=== PATIENT | male | born 1955 | race Hispanic/Latino ===

== ENCOUNTER 2018-12-30 12:33 | Inpatient (IN) | payer MEDICARE ==
[2018-12-30] MEDS ORDERED: VERSED ONE (18:44)
[2018-12-30] MEDS ORDERED: SUBLIMAZE ONE (18:44)
[2018-12-30] MEDS ORDERED: HEPARIN/NS 5000 UNIT/500ML(CATH LAB) 1,000 ML IR ONE (18:45)
[2018-12-30] MEDS ORDERED: ANCEF/STERILE WATER 2 GM/20 ML 2 GM/20 ML SYRINGE IV ONE (18:45)
[2018-12-30] MEDS ORDERED: NACL 0.9% 500 ML 500 ML ONE (18:46)
[2018-12-30] MEDS: XYLOCAINE 1%/ EPI 1:100,000 INFILTRATI ONE ×2 (19:11→19:26)
[2018-12-30] MEDS: HEPARIN 10,000 UNITS/10 ML ONE ×2 (19:22→19:31)
[2018-12-30] MEDS ORDERED: PROVENTIL IH PRN (19:42)
[2018-12-30] MEDS ORDERED: ZOFRAN IV PRN (19:42)
[2018-12-30] MEDS ORDERED: TYLENOL PO PRN (19:42)
[2018-12-30] MEDS ORDERED: SODIUM CHLORIDE FLUSH SYRINGE 10 ML IV PRN (19:42)
[2018-12-30] MEDS ORDERED: PERCOCET 5/325 PO PRN (19:42)
--- NOTE | 2018-12-30 19:45 | History and Physical Report ---
History of Present Illness Chief complaint: I need dialysis History of present illness: 63 YO Male with HTN, HLD, ESRD on HD admitted for Clotted AVF. Pt underwent permacath placement as per vascular surgery. Pt found to have ESRD in need of dialysis. Pt seen and evaluated in agriculture laboratory technician. Pt denies fever, chills, CP, Pal pitations, NVD, Trauma, BRBPR, productive cough, or recent ill contacts. Nephrology consulted in carpenter labor supervisor. Vascular surgery consulted. Pt denies fever, chills, CP, Palpitations, NVD, Syncope, Trauma, BRBPR. Pt admitted to [facility]. No reported nursing events. Pt has no prior [facility] admission. Past History Past Medical History: ESRD, hypertension, hyperlipidemia Past Surgical History: cholecystectomy, hernia repair (Right Nephrectomy), Other (AV fistula repair) Social history: , lives with family. denies: smoking, alcohol abuse, prescription drug abuse Family history: hypertension Medications and Allergies Allergies Allergy/AdvReac Type Severity Reaction Status Date / Time No Known Allergies Allergy Verified 12/30/18 12:58 Home Medications Medication Instructions Recorded Confirmed Last Taken Type Adult Low Dose Aspirin EC 81 mg PO DAILY 12/30/18 12/30/18 12/29/18 History 1 tab Cinacalcet HCl [Sensipar] 60 mg PO DAILY 12/30/18 12/30/18 12/29/18 History 1 tab Furosemide 80 mg PO DAILY 12/30/18 12/30/18 12/29/18 History 1 tab Glucosamine Sulfate 1,500 mg PO DAILY 12/30/18 12/30/18 12/29/18 History 1 tab Lisinopril [Zestril TAB] 40 mg PO DAILY 12/30/18 12/30/18 12/29/18 History 1 tab Nifedipine 60 mg PO DAILY 12/30/18 12/30/18 12/29/18 History 1 tab Sevelamer Carbonate 800 mg PO TID 12/30/18 12/30/18 12/29/18 History 1 tab Review of Systems Constitutional: no weight loss, no weight gain, no fever, no chills Ears, nose, mouth and throat: no ear pain, no ear discharge, no tinnitis, no decreased hearing, no nose pain Cardiovascular: no chest pain, no orthopnea, no palpitations, no rapid/irregular heart beat, no edema, no syncope Respiratory: no cough, no cough with sputum, no excessive sputum, no hemoptysis, no shortness of breath Gastrointestinal: no nausea, no vomiting, no diarrhea, no constipation, no change in bowel habits Genitourinary Male: no hematuria, no flank pain, no discharge, no urinary hesitancy, no nocturia Rectal: no pain, no incontinence, no bleeding Musculoskeletal: no neck stiffness, no neck pain, no shooting arm pain, no arm numbness/tingling, no low back pain, no shooting leg pain Integumentary: no rash, no pruritis, no redness, no sores, no wounds Neurological: no head injury, no transient paralysis, no paralysis, no weakness, no parathesias, no numbness, no tingling Psychiatric: no anxiety, no memory loss, no change in sleep habits, no insomnia, no hypersomnia, no change in appetite, no change in libido Endocrine: no cold intolerance, no heat intolerance, no polyphagia, no excessive thirst, no polydipsia, no polyuria, no nocturia Hematologic/Lymphatic: no easy bruising, no easy bleeding, no lymphadenopathy, no lymphedema Allergic/Immunologic: no urticaria, no allergic rhinitis, no persistent infections Exam - Constitutional Vitals: Temp Pulse Resp BP Pulse Ox 97.9 F 57 L 18 135/60 95 12/30/18 14:00 12/30/18 14:00 12/30/18 14:00 12/30/18 14:00 12/30/18 14:00 General appearance: Present: no acute distress, well-nourished - EENT Eyes: Present: PERRL ENT: hearing intact, clear oral mucosa - Neck Neck: Present: supple, normal ROM - Respiratory Respiratory effort: normal Respiratory: bilateral: CTA - Cardiovascular Heart Sounds: Present: S1 & S2. Absent: rub, click - Extremities Extremities: pulses symmetrical, No edema Peripheral Pulses: within normal limits - Abdominal General gastrointestinal: Present: soft, non-tender, non-distended, normal bowel sounds Male genitourinary: Present: normal - Integumentary Integumentary: Present: clear, warm, dry - Musculoskeletal Musculoskeletal: gait normal, strength equal bilaterally - Psychiatric Psychiatric: appropriate mood/affect, intact judgment & insight - Neurologic Neurologic: CNII-XII intact, moves all extremities Results - Labs CBC & Chem 7: 03/21/19 13:18 Labs: Abnormal lab results 12/30/18 Range/Units 13:18 Potassium 6.4 H* (3.6-5.0) mmol/L Assessment and Plan - Patient Problems (1) ESRD (end stage renal disease) on dialysis Current Visit: Yes Status: Acute Plan to address problem: Nephrology consulted for urgent dialysis, strict I/O, daily weight, monitor uop q shift, avoid nephrotoxic agents (2) Hyperkalemia Current Visit: Yes Status: Acute Plan to address problem: Urgent dialysis as per renal team, supportive care. (3) Clotted renal dialysis AV graft Current Visit: Yes Status: Acute Qualifiers: Encounter type: initial encounter Qualified Code(s): T82.868A - Thrombosis due to vascular prosthetic devices, implants and grafts, initial encounter Plan to address problem: Vascular surgery consulted, Pending surgical intervention, (4) DVT prophylaxis Current Visit: Yes Status: Acute Plan to address problem: SCD to BLE while in bed
[2018-12-30] MEDS ORDERED: NACL 0.9% 100 ML IV PRN (20:14)
--- NOTE | 2018-12-30 20:16 | Operative Report ---
Operative Report Operative Report: Date of procedure: 12/30/2018 Pre-operative diagnosis: Thrombosed AV fistula, end-stage renal disease, hyperkalemia Post-operative diagnosis: Same Procedure name(s): Session of permacath right internal jugular vein, duplex carotid cannulation right internal jugular vein, fluoroscopic supervision interpretation Surgeon: Adithya Padilla MD Multisensor Intelligence Officer: None Anesthesia: Moderate sedation EBL: None Specimen(s): None Complications: None Procedure:Patient in the supine position with the head rotated to the left the right anterior neck and chest were prepped and draped using standard sterile technique. Sterile duplex guidance was used to identify the patent internal jugular vein skin overlying that vessel was anesthetized. A small transverse incision was made through the anesthetized area and a cannulation needle was inserted directly into the internal jugular vein using duplex guidance to identify anterior wall penetration by the needle. The guidewire was advanced fluoroscopically through the right atrium into the inferior vena cava. Cannulation needle was exchanged for dilators and sequentially 12,14 and then 16 Anguillan dilators were advanced into the right atrium using Seldinger technique. A 16 [place]guillan safe sheath introducer was advanced and the right atrium and the guidewire and obturator were removed. A 23 cm permacath was then tunneled from the preselected a necessary as insertion site on the chest retrograde to the cervical incision. Catheter was then advanced through the introducer into the right atrium. The peel-away introducer was removed. Catheter tip was adjusted into the mid right atrium. Length and configuration was adjusted fluoroscopically. Both limbs of the catheter was aspirated flushed and primed using 5000 units of heparin per limb. Sterile caps were applied. The cervical incision was then closed using 3-0 Vicryl subcutaneous 4-0 Monocryl subcuticular. Skin was sealed with Dermabond. Catheter was anchored using a Tegaderm dressing with Biopatch. Fluoroscopy confirmed excellent catheter position and configuration. Patient was then returned to supine position and thus to the floor in stable condition rate for hemodialysis.
--- NOTE | 2018-12-30 21:11 | Consultation ---
History of Present Illness - Reason for Consult end stage renal disease - History of Present Illness CC : ESRD management and hyperkalemia 63 year old gentleman with medical history signficant for HTN , DM type II , ESRD previously on peritoneal dialysis now on hemodialysis on Thursday at the [facility] via a left arm AV fistula. He was sent from the dialysis unit due to inability to cannulate his fistula only one needle was able to successfully access blood flow. He was sent to the vascular surgery team. He was seen by Dr. Randy SolorzanoCath was placed. He will require likely fistulogram thrombectomy and possible fistula revision. Last dialysis was Thursday. Labs obtained today showed hyperkalemia with a potassium of 6.4 he makes some minimal urine. He reports he had a kidney biopsy and a rare disease was found and he does not remember the name of the disease ! He does report some exertional dyspnea he denies any nausea vomiting diarrhea denies any bleeding from any orifice he denies any headaches he denies any orthopnea PND.He reports dry weight is 92kg he was previously on peritoneal dialysis was several years before starting hemodialysis. Medications and Allergies Allergies Allergy/AdvReac Type Severity Reaction Status Date / Time No Known Allergies Allergy Verified 12/30/18 12:58 Home Medications Medication Instructions Recorded Confirmed Last Taken Type Adult Low Dose Aspirin EC 81 mg PO DAILY 12/30/18 12/30/18 12/29/18 History 1 tab Cinacalcet HCl [Sensipar] 60 mg PO DAILY 12/30/18 12/30/18 12/29/18 History 1 tab Furosemide 80 mg PO DAILY 12/30/18 12/30/18 12/29/18 History 1 tab Glucosamine Sulfate 1,500 mg PO DAILY 12/30/18 12/30/18 12/29/18 History 1 tab Lisinopril [Zestril TAB] 40 mg PO DAILY 12/30/18 12/30/18 12/29/18 History 1 tab Nifedipine 60 mg PO DAILY 12/30/18 12/30/18 12/29/18 History 1 tab Sevelamer Carbonate 800 mg PO TID 12/30/18 12/30/18 12/29/18 History 1 tab Active Meds: Active Medications Acetaminophen (Tylenol) 650 mg PO Q4H PRN PRN Reason: Pain MILD(1-3)/Fever >100.5/GREGG Albuterol (Proventil) 2.5 mg IH Q4HRT PRN PRN Reason: Shortness Of Breath Sodium Chloride (Nacl 0.9%) 100 mls @ 999 mls/hr IV JULI PRN PRN Reason: Hypotension Ondansetron HCl (Zofran) 4 mg IV Q8H PRN PRN Reason: Nausea And Vomiting Oxycodone/Acetaminophen (Percocet 5/325) 1 tab PO Q6H PRN PRN Reason: Pain, Moderate (4-6) Sodium Chloride (Sodium Chloride Flush Syringe 10 Ml) 10 ml IV BID JASPER Sodium Chloride (Sodium Chloride Flush Syringe 10 Ml) 10 ml IV PRN PRN PRN Reason: LINE FLUSH Review of Systems Constitutional: no weight loss, no weight gain, no fever, no chills Ears, nose, mouth and throat: no deferred, no ear pain, no ear discharge Cardiovascular: no chest pain, no orthopnea Respiratory: no cough, no cough with sputum Gastrointestinal: no abdominal pain, no nausea, no vomiting Genitourinary Male: no dysuria, no hematuria Musculoskeletal: no neck stiffness, no neck pain Integumentary: no deferred Neurological: no head injury, no transient paralysis Psychiatric: no anxiety, no memory loss Endocrine: no cold intolerance, no heat intolerance Hematologic/Lymphatic: no easy bruising, no easy bleeding Exam - Vital Signs Vital signs: Vital Signs Temp Pulse Resp BP Pulse Ox 97.9 F 57 L 18 135/60 95 12/30/18 14:00 12/30/18 14:00 12/30/18 14:00 12/30/18 14:00 12/30/18 14:00 - General Appearance General appearance: well-developed, well-nourished EENT: ATNC, PERRL, hearing diminished Neck: Present: neck supple, trachea midline Respiratory: Decreased Breath Sounds Heart: regular, S1S2 Gastrointestinal: Present: normal, normoactive bowel sounds Integumentary: no rash Neurologic: alert and oriented x3, gait normal, strength 5/5 Musculoskeletal: Present: other (left arm AV fistula left arm AV fistula) Psychiatric: mood/affect appropriate, cooperative Results - Lab Results 12/30/18 13:18 Assessment and Plan - Patient Problems (1) ESRD (end stage renal disease) on dialysis Current Visit: Yes Status: Acute Plan to address problem: End-stage renal disease Dialysis access is right IJ [place] Also has a left arm AV fistula with high-pitched bruit concerning for stenosis/obstruction Will initiate dialysis 2k/2.5ca/35hco3 bath (2) Dialysis AV fistula malfunction Current Visit: Yes Status: Acute Qualifiers: Encounter type: initial encounter Qualified Code(s): T82.590A - Other mechanical complication of surgically created arteriovenous fistula, initial encounter Plan to address problem: Dialysis fistula malfunction AV fistula with high-pitched bruit concern for thrombosis/stenosis Appreciate vascular surgery evaluation and management tunneled dialysis catheter has been placed plan for fistulogram and thrombectomy and possible fistula revision Will need follow up appointment with vascular surgery for fistulogram (3) Hyperkalemia Current Visit: Yes Status: Acute Plan to address problem: Acute hyperkalemia secondary to renal failure We'll initiate dialysis 2k/2.5ca/35hco3 bath. (4) HTN (hypertension) Current Visit: Yes Status: Acute Qualifiers: Hypertension type: essential hypertension Qualified Code(s): I10 - Essential (primary) hypertension Plan to address problem: Hypertension controlled continue lisinopril and nifedipine (5) Metabolic bone disease Current Visit: Yes Status: Acute Plan to address problem: History of secondary Hyperparathyroidism currently on sensipar continue Renvela 1 tab TID Repeat labs in am . We will follow with you Thank you for this consult.
[2018-12-31 04:42] LABS: Basophils % (Auto) 0.4 % (0.0-1.8); Eosinophils # (Auto) 0.1 K/mm3 (0.0-0.4); Eosinophils % (Auto) 1.9 % (0.0-4.3); Hematocrit 33.5 % (35.5-45.6); Lymphocytes # (Auto) 0.8 K/mm3 (1.2-5.4); Lymphocytes % (Auto) 12.1 % (13.4-35.0); Mean Corpuscular HGB Conc 33 % (32-34); Mean Corpuscular Volume 77 fl (84-94); Monocytes # (Auto) 0.6 K/mm3 (0.0-0.8); Monocytes % (Auto) 9.5 % (0.0-7.3); Platelet Count 327 K/mm3 (140-440); Red Blood Count 4.36 M/mm3 (3.65-5.03)
[2018-12-31 04:55] LABS: Calcium 9.3 mg/dL (8.4-10.2)
[2018-12-31 04:57] LABS: Red Cell Distribution Width 21.8 % (13.2-15.2)
[2018-12-31 07:23] LABS: Hepatitis B Surface Antigen Non-Reactive (Negative); Hepatitis C Virus Antibody Non-Reactive (NonReactive)
[2018-12-31] MEDS: SODIUM CHLORIDE FLUSH SYRINGE 10 ML IV SCH ×2 (07:35→09:30)
[2018-12-31] MEDS: RENVELA PO SCH ×2 (07:35→11:51)
[2018-12-31] MEDS: SENSIPAR PO SCH ×2 (09:28→09:34)
[2018-12-31 09:30] VITALS: BP 180/81
[2018-12-31] MEDS ORDERED: PROCARDIA XL PO SCH ×2 (10:00→22:00)
[2018-12-31] MEDS ORDERED: HALFPRIN EC PO SCH (10:00)
[2018-12-31] MEDS ORDERED: LASIX PO SCH (10:00)
[2018-12-31] MEDS ORDERED: ZESTRIL PO SCH (10:00)
[2018-12-31] MEDS ORDERED: GLUCOSAMINE SULFATE 1500 MG PO SCH (10:00)
[2018-12-31] MEDS ORDERED: APRESOLINE IV PRN (10:29)
--- NOTE | 2018-12-31 10:29 | Progress Note ---
Assessment and Plan Assessment and plan: 63-year-old man with history of hypertension and hyperlipidemia and end-stage renal disease who presents with clotted AV graft. Diagnoses AV graft malfunction Hypertensive urgency Hyperkalemia End-stage renal disease Hyperlipidemia Procedures; 12/30/18, placement of permacath Hospital course Patient received permacath in the right IJ, he then went on to have hemodialysis, hyperkalemia corrected after dialysis. Optimize blood pressure medications He is planned for fistulogram today DVT prophylaxis with heparin subcutaneous History Interval history: Review of systems Constitutional: No fevers, no malaise, no joint pains CVS: No chest pain, no orthopnea, no dyspnea on exertion, no pedal edema GI: No abdominal pain, no diarrhea, no vomiting, no constipation Respiratory: No shortness of breath, no wheezing, no coughing Hospitalist Physical - Physical exam Narrative exam: General.: Appears well, no distress, nontoxic HEENT: Moist mucous membranes, extraocular muscles intact, no lymphadenopathy Neck: supple Cardiac: S1-S2 heard Lungs: clear to auscultation bilaterally Abdomen: soft , nontender, nondistended, bowel sounds positive Extremities: no edema clubbing or cyanosis Skin: no rash or lesions Neurologic: no gross focal deficits Psych: calm, and cooperative - Constitutional Vitals: Temp Pulse Resp BP Pulse Ox 99.0 F 70 20 180/81 96 12/31/18 07:03 12/31/18 09:29 12/31/18 07:03 12/31/18 09:29 12/31/18 08:51 General appearance: Present: no acute distress, well-nourished Results - Labs CBC & Chem 7: 12/31/18 04:19 12/31/18 04:19 Labs: Laboratory Last Values WBC 6.2 K/mm3 (4.5-11.0) 12/31/18 04:19 RBC 4.36 M/mm3 (3.65-5.03) 12/31/18 04:19 Hgb 11.0 gm/dl (11.8-15.2) L 12/31/18 04:19 Hct 33.5 % (35.5-45.6) L 12/31/18 04:19 MCV 77 fl (84-94) L 12/31/18 04:19 MCH 25 pg (28-32) L 12/31/18 04:19 MCHC 33 % (32-34) 12/31/18 04:19 RDW 21.8 % (13.2-15.2) H 12/31/18 04:19 Plt Count 327 K/mm3 (140-440) 12/31/18 04:19 Lymph % (Auto) 12.1 % (13.4-35.0) L 12/31/18 04:19 [place] % (Auto) 9.5 % (0.0-7.3) H 12/31/18 04:19 Eos % (Auto) 1.9 % (0.0-4.3) 12/31/18 04:19 Baso % (Auto) 0.4 % (0.0-1.8) 12/31/18 04:19 Lymph # 0.8 K/mm3 (1.2-5.4) L 12/31/18 04:19 [place] # 0.6 K/mm3 (0.0-0.8) 12/31/18 04:19 Eos # 0.1 K/mm3 (0.0-0.4) 12/31/18 04:19 Baso # 0.0 K/mm3 (0.0-0.1) 12/31/18 04:19 Seg Neutrophils % 76.1 % (40.0-70.0) H 12/31/18 04:19 Seg Neutrophils # 4.7 K/mm3 (1.8-7.7) 12/31/18 04:19 Sodium 140 mmol/L (137-145) 12/31/18 04:19 Potassium 4.8 mmol/L (3.6-5.0) D 12/31/18 04:19 Chloride 96.7 mmol/L (98-107) L 12/31/18 04:19 Carbon Dioxide 24 mmol/L (22-30) 12/31/18 04:19 Anion Gap 24 mmol/L 12/31/18 04:19 BUN 44 mg/dL (9-20) H 12/31/18 04:19 Creatinine 7.6 mg/dL (0.8-1.5) H 12/31/18 04:19 Estimated GFR 7 ml/min 12/31/18 04:19 BUN/Creatinine Ratio 6 % 12/31/18 04:19 Glucose 78 mg/dL (75-100) 12/31/18 04:19 Calcium 9.3 mg/dL (8.4-10.2) 12/31/18 04:19 Hepatitis A IgM Ab Non-reactive (NonReactive) 12/31/18 04:19 Hep Bs Antigen Non-reactive (Negative) 12/31/18 04:19 Hep B Core IgM Ab Non-reactive (NonReactive) 12/31/18 04:19 Hepatitis C Antibody Non-reactive (NonReactive) 12/31/18 04:19 Active Medications - Current Medications Current Medications: Generic Name Dose Route Start Last Admin Trade Name Freq PRN Reason Stop Dose Admin Acetaminophen 650 mg 12/30/18 19:42 Tylenol PO Q4H PRN Pain MILD(1-3)/Fever >100.5/GREGG Albuterol 2.5 mg 12/30/18 19:42 Proventil IH Q4HRT PRN Shortness Of Breath Aspirin 81 mg 12/31/18 10:00 12/31/18 09:28 Halfprin Ec PO 81 mg DAILY JASPER Administration Cinacalcet 60 mg 12/31/18 10:00 12/31/18 09:34 Sensipar PO Not Given DAILY JASPER Furosemide 80 mg 12/31/18 10:00 12/31/18 09:29 Lasix PO 80 mg DAILY JASPER Administration Sodium Chloride 100 mls @ 999 mls/hr 12/30/18 20:14 Nacl 0.9% IV JULI PRN Hypotension Lisinopril 40 mg 12/31/18 10:00 12/31/18 09:29 Zestril PO 40 mg DAILY JASPER Administration Miscellaneous Medication 1,500 mg 12/31/18 10:00 Glucosamine Sulfate PO DAILY JASPER Nifedipine 60 mg 12/31/18 10:00 12/31/18 09:29 Procardia Xl PO 60 mg DAILY JASPER Administration Ondansetron HCl 4 mg 12/30/18 19:42 Zofran IV Q8H PRN Nausea And Vomiting Oxycodone/Acetaminophen 1 tab 12/30/18 19:42 Percocet 5/325 PO Q6H PRN Pain, Moderate (4-6) Sevelamer Carbonate 800 mg 12/31/18 08:00 12/31/18 07:35 Renvela PO Not Given TIDWM JASPER Sodium Chloride 10 ml 12/30/18 22:00 12/31/18 09:30 Sodium Chloride Flush Syringe 10 Ml IV 10 ml BID JASPER Administration Sodium Chloride 10 ml 12/30/18 19:42 Sodium Chloride Flush Syringe 10 Ml IV PRN PRN LINE FLUSH
[2018-12-31] MEDS ORDERED: HEPARIN SUB-Q SCH (14:00)
--- NOTE | 2018-12-31 15:38 | Discharge Summary ---
Providers - Providers Date of Admission: 12/30/18 19:42 Attending physician: OBED KUNZ MD 12/30/18 19:42 Consult to Physician [CONS] Routine Comment: Consulting Provider: COREY LOVE Physician Instructions: Reason For Exam: esrd 12/30/18 19:45 Consult to Physician [CONS] Routine Comment: Consulting Provider: REYNALDO MARTÍNEZ Physician Instructions: Reason For Exam: dialysis access 12/31/18 08:12 Physical Therapy Evaluation and Treat [CONS] Routine Comment: Reason For Exam: weakness Primary care physician: SUZY ULLOA Hospitalization Hospital course: 63-year-old man with history of hypertension and hyperlipidemia and end-stage renal disease who presents with clotted AV graft. Diagnoses AV graft malfunction Hypertensive urgency Hyperkalemia End-stage renal disease Hyperlipidemia Procedures; 12/30/18, placement of permacath Hospital course Patient received permacath in the right IJ, he then went on to have hemodialysis, hyperkalemia corrected after dialysis. Optimized blood pressure medications He is planned for fistulogram as outpatient, he will fup with vasc sx DVT prophylaxis with heparin subcutaneous Disposition: DC-01 TO HOME OR SELFCARE Time spent for discharge: 33 mins Core Measure Documentation - Palliative Care Palliative Care/ Comfort Measures: Not Applicable - Core Measures Any of the following diagnoses?: none Exam - Constitutional Vitals: Temp Pulse Resp BP Pulse Ox 99.0 F 72 20 180/81 95 12/31/18 07:03 12/31/18 10:00 12/31/18 10:00 12/31/18 09:29 12/31/18 10:00 General appearance: Present: no acute distress, well-nourished - EENT Eyes: Present: PERRL ENT: hearing intact, clear oral mucosa - Neck Neck: Present: supple, normal ROM - Respiratory Respiratory effort: normal Respiratory: bilateral: CTA - Cardiovascular Heart Sounds: Present: S1 & S2. Absent: rub, click - Extremities Extremities: pulses symmetrical, No edema Peripheral Pulses: within normal limits - Abdominal General gastrointestinal: Present: soft, non-tender, non-distended, normal bowel sounds Male genitourinary: Present: normal - Integumentary Integumentary: Present: clear, warm, dry - Musculoskeletal Musculoskeletal: gait normal, strength equal bilaterally - Psychiatric Psychiatric: appropriate mood/affect, intact judgment & insight - Neurologic Neurologic: CNII-XII intact, moves all extremities Plan Follow up with: SUZY ULLOA MD [Primary Care Provider] - 7 Days Prescriptions: NIFEdipine XL [Procardia Xl] 60 mg PO Q12HR #60 tablet
== END 2018-12-31 13:25 | disposition home or self-care (01) | DRG 286 ==
LOC: CATHLABREC 12:33 → 2B-ACE 19:42
PROVIDERS: ADMIT Internal Medicine; ATTEND Internal Medicine
PROC: 0JH63XZ Insertion of Tunneled Vascular Access Device into Chest Subcutaneous Tissue and Fascia, Percutaneous Approach (ICD-10-PCS; principal; 2018-12-30)
PROC: B2141ZZ Fluoroscopy of Right Heart using Low Osmolar Contrast (ICD-10-PCS; 2018-12-30)
PROC: 02H633Z Insertion of Infusion Device into Right Atrium, Percutaneous Approach (ICD-10-PCS; 2018-12-30)
PROC: B244ZZZ Ultrasonography of Right Heart (ICD-10-PCS; 2018-12-30)
PROC: 5A1D70Z Performance of Urinary Filtration, Intermittent, Less than 6 Hours Per Day (ICD-10-PCS; 2018-12-30)
DX: T82.868A Thrombosis due to vascular prosthetic devices, implants and grafts, initial encounter (principal); N18.6 End stage renal disease; I12.0 Hypertensive chronic kidney disease with stage 5 chronic kidney disease or end stage renal disease; N25.81 Secondary hyperparathyroidism of renal origin; E11.22 Type 2 diabetes mellitus with diabetic chronic kidney disease; M89.8X8 Other specified disorders of bone, other site; E87.5 Hyperkalemia; I16.0 Hypertensive urgency; Y83.2 Surgical operation with anastomosis, bypass or graft as the cause of abnormal reaction of the patient, or of later complication, without mention of misadventure at the time of the procedure; E78.5 Hyperlipidemia, unspecified; Z90.49 Acquired absence of other specified parts of digestive tract; Z82.49 Family history of ischemic heart disease and other diseases of the circulatory system; Z90.5 Acquired absence of kidney; Z79.899 Other long term (current) drug therapy; Y92.098 Other place in other non-institutional residence as the place of occurrence of the external cause; Z79.84 Long term (current) use of oral hypoglycemic drugs
CPT/HCPCS: 36415; 36558; 76937; 77001; 80048; 80074; 84132; 85025; G0378; C1750; J0690; J1644; J2250; J3010; J7040

== ENCOUNTER 2019-01-06 11:33 | Day surgery (SDC) | payer MEDICARE ==
[~2019-01-06 11:33] MED LIST: ANCEF/STERILE WATER 2 GM/20 ML 2 GM/20 ML SYRINGE IV NR; NACL 0.9% 1000 ML 1,000 ML IV SCH
[2019-01-06] MEDS ORDERED: XYLOCAINE MPF 2% ONE (12:37)
[2019-01-06] MEDS ORDERED: DIPRIVAN 10 MG/ML IV ONE (12:37)
[2019-01-06] MEDS ORDERED: ZOFRAN ONE (12:37)
[2019-01-06] MEDS ORDERED: SUBLIMAZE ONE (12:37)
[2019-01-06] MEDS ORDERED: DECADRON ONE (12:37)
[2019-01-06] MEDS ORDERED: VERSED IV SCH (12:43)
[2019-01-06] MEDS ORDERED: SUBLIMAZE IV PRN (12:47)
--- NOTE | 2019-01-06 12:47 | Anesthesia Consultation ---
Anesthesia Consult and Med Hx Date of service: 01/06/19 - Airway Anesthetic Teeth Evaluation: Good ROM Head & Neck: Adequate Mental/Hyoid Distance: Adequate Mallampati Class: Class II Intubation Access Assessment: Probably Good - Pulmonary Exam CTA: Yes - Cardiac Exam Cardiac Exam: RRR - Pre-Operative Health Status ASA Pre-Surgery Classification: ASA4 Proposed Anesthetic Plan: General - Pulmonary Hx Smoking: Yes (5 yrs ago) Hx Respiratory Symptoms: No COPD: No - Cardiovascular System Hx Hypertension: Yes Hx Heart Attack/AMI: No Hx Percutaneous Transluminal Coronary Angioplasty (PTCA): No Hx Cardia Arrhythmia: No - Central Nervous System CVA: No - Gastrointestinal Hx Gastroesophageal Reflux Disease: No - Endocrine Hx End Stage Renal Disease: Yes (last HD this morning) Hx Non-Insulin Dependent Diabetes: Yes Hx Thyroid Disease: No - Hematic Hx Anemia: Yes - Additional Comments Anesthesia Medical History Comments: No hx anesthetic complications.
--- NOTE | 2019-01-06 12:47 | Anesthesia Day of Surgery ---
Anesthesia Day of Surgery - Day of Surgery Patient Examined: Yes Patient H&P Reviewed: Yes Patient is NPO: Yes
[2019-01-06] MEDS ORDERED: NACL 0.9% 500 ML 500 ML ONE (13:07)
[2019-01-06] MEDS ORDERED: MARCAINE 0.5% INFILTRATI ONE ×3 (13:07→15:12)
[2019-01-06] MEDS ORDERED: NITROGLYCERIN SYRINGE 3 ML ONE (13:07)
[2019-01-06] MEDS ORDERED: HEPARIN 10,000 UNITS/10 ML ONE (13:07)
[2019-01-06 13:29] LABS: Basophils % (Auto) 0.5 % (0.0-1.8); Eosinophils # (Auto) 0.1 K/mm3 (0.0-0.4); Eosinophils % (Auto) 1.7 % (0.0-4.3); Hematocrit 32.8 % (35.5-45.6); Hemoglobin 10.7 gm/dl (11.8-15.2); Lymphocytes # (Auto) 0.8 K/mm3 (1.2-5.4); Lymphocytes % (Auto) 10.5 % (13.4-35.0); Mean Corpuscular HGB Conc 32 % (32-34); Mean Corpuscular Volume 76 fl (84-94); Monocytes % (Auto) 12.2 % (0.0-7.3); Platelet Count 421 K/mm3 (140-440); Red Blood Count 4.34 M/mm3 (3.65-5.03); Red Cell Distribution Width 21.1 % (13.2-15.2)
[2019-01-06 13:48] LABS: Calcium 9.3 mg/dL (8.4-10.2)
[2019-01-06] MEDS ORDERED: HEPARIN 10,000 UNITS/10 ML IV ONE (15:06)
[2019-01-06] MEDS ORDERED: NACL 0.9% IR ONE (15:06)
[2019-01-06] MEDS ORDERED: NACL 0.9% 500 ML IRRIGATION ONE (15:06)
[2019-01-06] MEDS ORDERED: DDAVP 20 MCG in NACL 0.9% 50 ML IV ONE (16:00)
[2019-01-06] MEDS ORDERED: NEO SYNEPHRINE/NS Syringe(OR USE) IV ONE (17:43)
--- NOTE | 2019-01-06 17:59 | Post Operative Note ---
Pre-op diagnosis: thrombosed hemo-dialysis fistula, end-stage renal disease Post-op diagnosis: same Findings: AV fistula with large thrombosed pseudoaneurysms not salvageable. Midportion of access for placed using a interposition bovine autograft Procedure: Thrombectomy of AV fistula, open, with revision using bovine interposition jump graft Anesthesia: ADELINAA Surgeon: REYNALDO MARTÍNEZ Television Cabinet Finisher: CATARINO LOPES Estimated blood loss: 50-100ml Pathology: list (thrombus) Specimen disposition: to lab Condition: stable Disposition: same day
--- NOTE | 2019-01-06 18:01 | Short Stay Summary ---
<SANIAY LOPES - Last Filed: 01/06/19 18:16> Short Stay Documentation Date of service: 01/06/19 - History H&P: obtained from office (short stay H&P completed on paper at hospital today prior to surgery) - Allergies and Medications Current Medications: Allergies No Known Allergies Allergy (Verified 01/05/19 13:21) Home Medications Medication Instructions Recorded Confirmed Last Taken Type Adult Low Dose Aspirin EC 81 mg PO DAILY 12/30/18 01/05/19 12/29/18 History 1 tab Cinacalcet HCl [Sensipar] 60 mg PO DAILY 12/30/18 01/05/19 12/29/18 History 1 tab Furosemide 80 mg PO DAILY 12/30/18 01/05/19 12/29/18 History 1 tab Glucosamine Sulfate 1,500 mg PO DAILY 12/30/18 01/05/19 12/29/18 History 1 tab Lisinopril [Zestril TAB] 40 mg PO DAILY 12/30/18 01/05/19 12/29/18 History 1 tab Sevelamer Carbonate 800 mg PO TID 12/30/18 01/05/19 12/29/18 History 1 tab NIFEdipine XL [Procardia Xl] 60 mg PO Q12HR #60 tablet 12/31/18 01/05/19 Unknown Rx Active Medications Fentanyl (Sublimaze) 50 mcg IV Q5MIN PRN PRN Reason: Pain , Severe (7-10) Stop: 01/06/19 23:59 Cefazolin Sodium (Ancef/Sterile Water 2 Gm/20 Ml) 2 gm in 20 mls @ 80 mls/hr IV PREOP NR; Protocol Stop: 01/06/19 23:59 Sodium Chloride (Nacl 0.9% 1000 Ml) 1,000 mls @ 42 mls/hr IV DIRECT JASPER Midazolam HCl (Versed) 2 mg IV PREOP JASPER Stop: 01/06/19 23:59 - Disposition Condition at discharge: Stable Disposition: -01 TO HOME OR SELFCARE Short Stay Discharge Plan Follow up with: SUZY ULLOA MD [Primary Care Provider] - 7 Days ADITHYA MARTÍNEZ MD [Staff Physician] - 14 Days Prescriptions: HYDROcodone/ACETAMINOPHEN [[place] 5-325 Tablet] 1 each PO Q6H PRN #14 tablet PRN Reason: Pain, Moderate (4-6) <ADITHYA MARTÍNEZ - Last Filed: 01/06/19 18:24> Short Stay Documentation - Allergies and Medications Current Medications: Allergies No Known Allergies Allergy (Verified 01/05/19 13:21) Home Medications Medication Instructions Recorded Confirmed Last Taken Type Adult Low Dose Aspirin EC 81 mg PO DAILY 12/30/18 01/05/19 12/29/18 History 1 tab Cinacalcet HCl [Sensipar] 60 mg PO DAILY 12/30/18 01/05/19 12/29/18 History 1 tab Furosemide 80 mg PO DAILY 12/30/18 01/05/19 12/29/18 History 1 tab Glucosamine Sulfate 1,500 mg PO DAILY 12/30/18 01/05/19 12/29/18 History 1 tab Lisinopril [Zestril TAB] 40 mg PO DAILY 12/30/18 01/05/19 12/29/18 History 1 tab Sevelamer Carbonate 800 mg PO TID 12/30/18 01/05/19 12/29/18 History 1 tab NIFEdipine XL [Procardia Xl] 60 mg PO Q12HR #60 tablet 12/31/18 01/05/19 Unknown Rx Active Medications Fentanyl (Sublimaze) 50 mcg IV Q5MIN PRN PRN Reason: Pain , Severe (7-10) Stop: 01/06/19 23:59 Cefazolin Sodium (Ancef/Sterile Water 2 Gm/20 Ml) 2 gm in 20 mls @ 80 mls/hr IV PREOP NR; Protocol Stop: 01/06/19 23:59 Sodium Chloride (Nacl 0.9% 1000 Ml) 1,000 mls @ 42 mls/hr IV DIRECT JASPER Midazolam HCl (Versed) 2 mg IV PREOP JASPER Stop: 01/06/19 23:59 - Brief post op/procedure progress note Date of procedure: 01/06/19 Procedure: Pre-operative diagnosis: Thrombosed surgically created hemodialysis fistula left arm Post-operative diagnosis: Same Procedure name(s): Open thrombectomy with revision left arm hemodialysis fistula using bovine Artegraft interposition jump graft Surgeon: Adithya Martínez MD Memory Care Director: Saniya Coto NP Anesthesia: Gen. EBL: 100 mL Specimen(s): Thrombus Complications: None Findings: Pseudoaneurysms at the cannulation site both thrombosed secondary to stenosis at the venous outflow and between the 2 pseudoaneurysms. 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 New jump interposition graft using bovine carotid placed lateral to the original fistula. Excellent inflow and outflow with pronounced thrill and bruit noted. Procedure: Patient in the supine position after adequate levels of general endotracheal anesthesia was obtained the patient's left arm was extended and the entire extremity was prepped and draped using standard sterile technique. A longitudinal incision was made slightly occipital on the arm to the venous cannulation pseudoaneurysm which was clearly thrombosed. This incision was extended slightly distally and the dissection was deepened until the patent portion of the fistula beyond the stenosis was encountered and mobilized and encircled using vessel loops. I should note that I did interrogate the entire fistula with ultrasound prior to making any incisions to determine the patent an d thrombosed segments and then obtained more proximal control over a portion of the pseudoaneurysm again using a slightly tedious dissection and the vessel was controlled using loops. The pseudoaneurysm was clearly thrombosed. I then opened the thrombosed pseudoaneurysm longitudinally and extended it distally into the patent portion of the venous outflow tract. Vigorous back bleeding was noted until I occluded the vein with DeBakey clamps. I then proceeded to remove both fresh and adherent thrombus from the pseudoaneurysm by getting up the edges using a spatula and then compressing the pseudoaneurysm and expressing a large amount of thrombus which was sent for evaluation. As a combination of chronic and fresh thrombus was removed. This was duplicated over the arterial cannulation site but I could never get any thrombus to move forward. I used adherent clot thrombectomy catheter to clean out the remaining thrombus from the venous pseudoaneurysm and I still could not pass it into the more proximal end of the fistula. At this point I extended the incision distally and then opened up the pseudoaneurysm and ultimately noted that the portion of the fistula between the 2 cannulation sites was totally thrombosed and fibrotic without a viable connection that would result in a salvageable fistula. At this point it was obvious that we would need to a new interposition graft and therefore I mobilized the venous cannulation pseudoaneurysm and then amputated it and removed it. I oversewed the arterial side using Prolene suture. The distal vein was spatulated to be a recipient for the graft. Then a transverse incision near the arterial end of the fistula which was still running right at the transition zone to the thrombosed segment. As the fistula clamped it proximally and distally. I ligated distally. Should note that the patient by this time been heparinized to preserve flow. Then amputated the fistula and then occluded manually the inflow and removed another segment of thrombus clearing the entire proximal end of the fistula from thrombotic material. Laps were then used to regain control. The curved Sophia-Wick tunneling device was then advanced from the more brachial incision into the more axillary incision tunneling lateral to the original course of the fistula. A 7 mm bovine Artegraft was then brought into the field and an end-to-end anastomosis is then created at the venous end between a slightly beveled graft and the venous outflow tract. I then tunneled the graft using the Sophia-Wick and withdrew it into the more axillary incision in an nonrotational fashion. Graft was belveled and amputated and another end to end anastomosis was then created between the more proximal fistula and the graft. Prior to completion of the suture line antegrade and retrograde flushing was performed. Suture line was then completed air was evacuated by retrograde filling followed by release proximally. The patient tolerated declamping without difficulty. The fistula developed a much stronger thrill and bruit. Hemostasis was obtained using electrocautery and DDAVP intravenously. Field block of Marcaine 0.5% was placed in the surgical incisions were closed using 3-0 Vicryl subcutaneous and 4-0 Monocryl subcuticular. The skin was sealed with Dermabond. Patient was then returned to the supine position and extubated and returned to the recovery room in stable condition having tolerated the procedure well. Sponge and needle counts were correct. Palpable radial pulse was noted. - Hospital course Hospital course: Unremarkable - Discharge Diagnoses (1) Clotted renal dialysis AV graft Status: Acute Qualifiers: Encounter type: subsequent encounter Qualified Code(s): T82.868D - Thrombosis due to vascular prosthetic devices, implants and grafts, subsequent encounter Short Stay Discharge Plan Activity: advance as tolerated Weight Bearing Status: Full Weight Bearing Diet: renal Wound: keep clean and dry Special Instructions: no heavy lifting
--- NOTE | 2019-01-06 18:15 | Operative Report ---
Operative Report Operative Report: Date of procedure: 01/06/2019 Pre-operative diagnosis: Thrombosed surgically created hemodialysis fistula left arm Post-operative diagnosis: Same Procedure name(s): Open thrombectomy with revision left arm hemodialysis fistula using bovine Artegraft interposition jump graft Surgeon: Adithya Padilla MD Bond Broker: Saniya Coto NP Anesthesia: Gen. EBL: 100 mL Specimen(s): Thrombus Complications: None Findings: Pseudoaneurysms at the cannulation site both thrombosed secondary to s tenosis at the venous outflow and between the 2 pseudoaneurysms. 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 New jump interposition graft using bovine carotid placed lateral to the original fistula. Excellent inflow and outflow with pronounced thrill and bruit noted. Procedure: Patient in the supine position after adequate levels of general endotracheal anesthesia was obtained the patient's left arm was extended and the entire extremity was prepped and draped using standard sterile technique. A longitudinal incision was made slightly occipital on the arm to the venous cannulation pseudoaneurysm which was clearly thrombosed. This incision was extended slightly distally and the dissection was deepened until the patent portion of the fistula beyond the stenosis was encountered and mobilized and encircled using vessel loops. I should note that I did interrogate the entire fistula with ultrasound prior to making any incisions to determine the patent and thrombosed segments and then obtained more proximal control over a portion of the pseudoaneurysm again using a slightly tedious dissection and the vessel was controlled using loops. The pseudoaneurysm was clearly thrombosed. I then opened the thrombosed pseudoaneurysm longitudinally and extended it distally into the patent portion of the venous outflow tract. Vigorous back bleeding was noted until I occluded the vein with DeBakey clamps. I then proceeded to remove both fresh and adherent thrombus from the pseudoaneurysm by getting up the edges using a spatula and then compressing the pseudoaneurysm and expressing a large amount of thrombus which was sent for evaluation. As a combination of chronic and fresh thrombus was removed. This was duplicated over the arterial cannulation site but I could never get any thrombus to move forward. I used adherent clot thrombectomy catheter to clean out the remaining thrombus from the venous pseudoaneurysm and I still could not pass it into the more proximal end of the fistula. At this point I extended the incision distally and then opened up the pseudoaneurysm and ultimately noted that the portion of the fistula between the 2 cannulation sites was totally thrombosed and fibrotic without a viable connection that would result in a salvageable fistula. At this point it was obvious that we would need to a new interposition graft and therefore I mobilized the venous cannulation pseudoaneurysm and then amputated it and removed it. I oversewed the arterial side using Prolene suture. The distal vein was spatulated to be a recipient for the graft. Then a transverse incision near the arterial end of the fistula which was still running right at the transition zone to the thrombosed segment. As the fistula clamped it proximally and distally. I ligated distally. Should note that the patient by this time been heparinized to preserve flow. Then amputated the fistula and then occluded manually the inflow and removed another segment of thrombus clearing the entire proximal end of the fistula from thrombotic material. Laps were then used to regain control. The curved Sophia-Wick tunneling device was then advanced from the more brachial incision into the more axillary incision tunneling lateral to the original course of the fistula. A 7 mm bovine Artegraft was then brought into the field and an end-to-end anastomosis is then created at the venous end between a slightly beveled graft and the venous outflow tract. I then tunneled the graft using the Sophia-Wick and withdrew it into the more axillary incision in an nonrotational fashion. Graft was belveled and amputated and another end to end anastomosis was then created between the more proximal fistula and the graft. Prior to completion of the suture line antegrade and retrograde flushing was performed. Suture line was then completed air was evacuated by retrograde filling followed by release proximally. The patient tolerated declamping without difficulty. The fistula developed a much stronger thrill and bruit. Hemostasis was obtained using electrocautery and [employer] INSPECTOR intravenously. Field block of Marcaine 0.5% was placed in the surgical incisions were closed using 3-0 Vicryl subcutaneous and 4-0 Monocryl subcuticular. The skin was sealed with Dermabond. Patient was then returned to the supine position and extubated and returned to the recovery room in stable condition having tolerated the procedure well. Sponge and needle counts were correct. Palpable radial pulse was noted.
[2019-01-06 19:34] VITALS: BP 122/52
[2019-01-06] MEDS ORDERED: TOBRADEX OU SCH (20:00)
== END 2019-01-06 11:34 | disposition home or self-care (01) ==
LOC: OR 11:33
PROVIDERS: ATTEND Surgery Vascular Surgery
DX: T82.868A Thrombosis due to vascular prosthetic devices, implants and grafts, initial encounter (principal); T82.590A Other mechanical complication of surgically created arteriovenous fistula, initial encounter; I12.0 Hypertensive chronic kidney disease with stage 5 chronic kidney disease or end stage renal disease; E11.22 Type 2 diabetes mellitus with diabetic chronic kidney disease; N18.6 End stage renal disease; E78.00 Pure hypercholesterolemia, unspecified; K21.9 Gastro-esophageal reflux disease without esophagitis; Z99.2 Dependence on renal dialysis; Z90.5 Acquired absence of kidney; Z79.899 Other long term (current) drug therapy; Z90.49 Acquired absence of other specified parts of digestive tract; Z87.891 Personal history of nicotine dependence; Z85.89 Personal history of malignant neoplasm of other organs and systems; Z98.890 Other specified postprocedural states; Z91.81 History of falling; Z86.2 Personal history of diseases of the blood and blood-forming organs and certain disorders involving the immune mechanism; Y83.8 Other surgical procedures as the cause of abnormal reaction of the patient, or of later complication, without mention of misadventure at the time of the procedure; Y92.89 Other specified places as the place of occurrence of the external cause
CPT/HCPCS: 36415; 36833; 80048; 82803; 85025; 88304; C1768; J0690; J1100; J1644; J2370; J2405; J2597; J2704; J3010; J7030; J7040